=== PATIENT | female | born 1945 | race Caucasian/White ===

== ENCOUNTER 2022-06-22 05:18 | Day surgery (SDC) | payer OTHER, MEDICAID ==
[2022-06-21 10:47] LABS: COVID AG,FIA SOURCE NASAL SWAB
[~2022-06-22] VITALS: Ht 147.3 cm; Wt 61.3 kg
[~2022-06-22 05:18] MED LIST: ACET-3385 PO; AMLO-257 PO; ASPI-1450 PO; CAPS1ADH9 TP; CHOL200059 PO; CHOL25TA4 PO; FAMO20 PO; FERR325T27 PO; GABA-1181 PO; HYDR-4723 PO; HYPR15DR23 OU; LIDO35.422 TP; LOVA20TA73 PO; METF-1211 PO; METO25 PO; MIRT-89 PO; OS500 PO; PANT-31 PO; RINGERS SOLUTION,LACTATED 500 ML IV ONE; SENN-295 PO; SENN-31 PO; SERT-158 PO; TRAZ-252 PO
[2022-06-22] MEDS ORDERED: CHONDR SULF A SOD/HYALURONATE 1.05 ML KIT IO ONE (05:19)
[2022-06-22] MEDS ORDERED: FentaNYL CITRATE PF 100 MCG/2 ML VIAL IVP ONE (05:19)
[2022-06-22] MEDS ORDERED: TETRACAINE HCL/PF 0.5% 4 ML OPHTHALMIC SOLUTION OS ONE (05:19)
[2022-06-22] MEDS ORDERED: BALANCED SALT 15 ML OPHTHALMIC IRRIG.SOLN OS ONE (05:19)
[2022-06-22] MEDS ORDERED: EPINEPHrine 1:1,000 [1 MG/ML] VIAL ET ONE (05:19)
[2022-06-22] MEDS ORDERED: POVIDONE-IODINE 5% 30 ML OPHTHALMIC SOLUTION OS ONE (05:19)
[2022-06-22] MEDS ORDERED: LIDOCAINE/PF 1% 2 ML VIAL ID ONE (05:19)
[2022-06-22] MEDS ORDERED: MIDAZOLAM HCL 2 MG/2 ML VIAL IVP ONE (05:19)
[2022-06-22] MEDS ORDERED: TROPICAMIDE 1% 2 ML OPHTHALMIC SOLUTION ONE (05:33)
[2022-06-22] MEDS ORDERED: RINGERS SOLUTION,LACTATED 0 ML IV ONE (05:33)
[2022-06-22] MEDS ORDERED: PHENYLEPHRINE HCL 2.5% 2 ML OPHTHALMIC SOLUTION ONE (05:33)
[2022-06-22] MEDS ORDERED: MOXIFLOXACIN HCL 0.5% 3 ML OPHTHALMIC SOLUTION ONE (05:33)
[2022-06-22] MEDS ORDERED: KETOROLAC TROMETHAMINE 0.5% 5 ML OPHTHALMIC SOLUTION ONE (05:33)
[2022-06-22] MEDS: TROPICAMIDE 1% 2 ML OPHTHALMIC SOLUTION OD SCH ×3 (06:05→06:27)
[2022-06-22] MEDS: PHENYLEPHRINE HCL 2.5% 2 ML OPHTHALMIC SOLUTION OD SCH ×3 (06:05→06:27)
[2022-06-22] MEDS: MOXIFLOXACIN HCL 0.5% 3 ML OPHTHALMIC SOLUTION OD SCH ×3 (06:05→06:27)
[2022-06-22] MEDS: KETOROLAC TROMETHAMINE 0.5% 5 ML OPHTHALMIC SOLUTION OD SCH ×3 (06:06→06:27)
[2022-06-22 07:16] LABS: GLUCOMETER DEV NAME(LOC) SDS.; GLUCOSE,POINT OF CARE 109 MG/DL (70-110)
== END 2022-06-22 08:30 | disposition short-term general hospital (02) ==
LOC: SURGERY 05:18 → EDBD 07:00 → SURGERY 08:30
PROVIDERS: ATTEND Ophthalmology
DX: E11.36 Type 2 diabetes mellitus with diabetic cataract (principal); H25.11 Age-related nuclear cataract, right eye; I10 Essential (primary) hypertension; Z79.899 Other long term (current) drug therapy; Z98.890 Other specified postprocedural states; Z20.822 Contact with and (suspected) exposure to COVID-19
CPT/HCPCS: 87426; 66984; 82962; C9803; J0171; J3010; J3490; J2250; Q9967; V2632; J7120